=== PATIENT | female | born 1955 | race Caucasian/White ===

== ENCOUNTER 2022-03-11 17:49 | Emergency (ER) | payer MEDICARE ==
[2022-03-11] MEDS ORDERED: Bacitracin Oint 1 GM U/D Packet TOP ONE (18:40)
[2022-03-11] MEDS ORDERED: Sodium Chloride 0.9% 10 ML Syringe FLUSH PRN (18:43)
[2022-03-11] MEDS ORDERED: cefTRIAXone 2 GM in Sodium Chloride 0.9% 50 ML IV ONE (18:44)
== END 2022-03-11 19:31 | disposition home or self-care (01) ==
LOC: JP.ED 17:49
DX: L03.113 Cellulitis of right upper limb (principal); Z88.0 Allergy status to penicillin; Z88.2 Allergy status to sulfonamides
CPT/HCPCS: 96365; 99283; J0696; J3490